=== PATIENT | male | born 1960 | race Caucasian/White ===

== ENCOUNTER 2021-01-27 15:34 | Emergency (ER) | payer OTHER ==
[~2021-01-27] VITALS: Ht 172.7 cm; Wt 90.7 kg
[2021-01-27 16:00] LABS: URINE BILIRUBIN NEGATIVE (Negative); URINE BLOOD TRACE (Negative); URINE CLARITY CLEAR; URINE COLOR YELLOW; URINE GLUCOSE-RANDOM* 3+ (Negative); URINE KETONES NEGATIVE (Negative); URINE LEUKOCYTES-REFLEX NEGATIVE (Negative); URINE NITRITE-REFLEX NEGATIVE (Negative); URINE PROTEIN (DIPSTICK) NEGATIVE (Negative); URINE SPECIFIC GRAVITY <= 1.005 (1.005-1.035); URINE UROBILINOGEN 0.2 E.U./dl (0.2-1.0)
[2021-01-27 18:44] LABS: ABSOLUTE NEUTROPHILS 3.1 thou/uL (1.4-8.2); BASOPHILS 0.6 % (0.0-2.0); EOSINOPHILS 2.4 % (0.0-3.0); HEMATOCRIT 40.3 % (42.0-52.0); HEMOGLOBIN 14.1 gm/dL (14.0-18.0); LYMPHOCYTES 24.6 % (24.0-44.0); MCH 32.1 pg (26.0-34.0); MCHC 34.9 g/dL (28.0-37.0); MCV 92.1 fL (80.0-100.0); MONOCYTES 7.9 % (1.0-8.0); PLATELET COUNT 217 thou/uL (150-400); POLYS 64.5 % (36.0-66.0); RBC 4.38 mil/uL (4.50-6.00); RDW 12.9 % (10.5-14.5); WBC 4.8 thou/uL (4.0-11.0)
[2021-01-27 18:54] LABS: CALCIUM 8.4 mg/dL (8.5-10.1); CREATININE 1.2 mg/dL (0.7-1.3); POTASSIUM 4.4 mmol/L (3.5-5.1)
[2021-01-27] MEDS ORDERED: MOBIC15 MG PO ×2 (20:10→20:11)
[2021-01-27 20:28] VITALS: BP 132/77
== END 2021-01-27 20:29 | disposition home or self-care (01) ==
LOC: ER 15:34
PROVIDERS: Emergency Medicine
DX: N23 Unspecified renal colic (principal); E11.9 Type 2 diabetes mellitus without complications; Z87.442 Personal history of urinary calculi; Z88.6 Allergy status to analgesic agent